=== PATIENT | male | born 1945 | race Caucasian/White ===

== ENCOUNTER 2018-12-01 10:38 | Emergency (ER) | payer MEDICARE, OTHER ==
[~2018-12-01 10:38] MED LIST: ADAL40PE4 SQ; ORP100 PO; PER PO; PRED-1 PO
[2018-12-01] MEDS ORDERED: LEVO-3 PO (10:53)
[2018-12-01 11:00] VITALS: BP 101/74
[2018-12-01] MEDS ORDERED: CLOB15CR22 TP (11:13)
[2018-12-01] MEDS ORDERED: SELE180S13 TOP (11:13)
--- NOTE | 2018-12-01 11:15 | ER Report ---
History and Physical Time Seen By MD: 10:45 Hx. of Stated Complaint: Pt. has history of rheumatoid psoratic arthritis. Has medication, but is not sure if he can apply it to the inside of his nostrils. Has a flare right now, and no established tool maintenance worker in town. HPI/ROS CHIEF COMPLAINT: Skin problem HISTORY OF PRESENT ILLNESS: This is a 73-year-old male presents to the emergency room for skin problem. Patient states that he has a history of rheumatoid psoriatic arthritis. 2 please well controlled however recently he is experienced a few lesions around the crease of his nose and a little on the inside of his nasal mucosa. He does have medications that he typically uses for these however he was unsure if he could use these on the mucosa and he also states that since he's been using the medications there is virtually no change. I did look at the medications, both of them were , 2011 and 2014. Patient has no other concerns, no fevers, no rashes, no chest pain or shortness of breath. REVIEW OF SYSTEMS: Respiratory: No cough, no dyspnea. Cardiovascular: No chest pain, no palpitations. Gastrointestinal: No vomiting, no abdominal pain. Musculoskeletal: No back pain. Integumentary: As above. Allergies: Coded Allergies: hydromorphone (Unverified Allergy, Unknown, 12/01/18) hydroxychloroquine (Unverified Allergy, Unknown, 12/01/18) Home Meds Active Scripts Selenium Sulfide (Selenium Sulfide) 2.3 % Shampoo, 1 MARIELA TOP PRN, #1 BOT Prov:SAMANTHA BECKMAN-BC 12/01/18 Clobetasol Propionate/Emoll (CLOBETASOL EMOLLIENT 0.05% CRM) 15 Gm Cream..g., 1 MARIELA TP BID, #1 TUB Prov:SAMANTHA BECKMAN-BC 12/01/18 Reported Medications Levothyroxine Sodium (LEVOTHYROXINE SODIUM) 100 Mcg Tablet, 150 MCG PO QDAY, TAB 12/01/18 Adalimumab (HUMIRA) 40 Mg/0.8 Ml [email or web address], 40 MG SQ 11/04/14 Discontinued Scripts Prednisone 10 Mg Tab (PREDNISONE 10 MG TAB) 10 Mg Tablet, 10 MG PO DIRECTED, #35 TAB 2 BID x5, 1 BID x5, 1 QDay X5 Prov:ROXY WALTON [employer] 11/04/14 Orphenadrine Citrate (ORPHENADRINE CITRATE) 100 Mg Tabsr, 100 MG PO BID, #20 TAB Prov:ROXY WALTON [employer] 11/04/14 Oxycodone/Acetaminophen (OXYCODONE/ACETAMINOPHEN 5MG/325 MG) 5 Mg/325 Mg Tab, 1- 2 TAB PO Q6H, #30 TAB Prov:ROXY WALTON [employer] 11/04/14 Past Medical/Surgical History Patient has a past medical and surgical history of bilateral ocular implants, bilateral knee replacements, right shoulder repair, left shoulder repair, C3-4 fusion, rheumatoid arthritis, psoriasis. Reviewed Nurses Notes: Yes Hx Smoking: No Constitutional Vital Sign - Last 24 Hours 12/01/18 12/01/18 12/01/18 12/01/18 10:44 10:45 10:48 10:53 Temp 98.1 Pulse 96 99 92 Resp 16 B/P (MAP) 100/76 100/76 (84) Pulse Ox 92 93 91 O2 Delivery Room Air 12/01/18 11:00 B/P (MAP) 101/74 (83) Physical Exam General Appearance: The patient is alert, has no immediate need for airway protection and no current signs of toxicity. Eyes: Pupils equal and round no injection. Respiratory: Chest is non tender, lungs are clear to auscultation. Cardiac: regular rate and rhythm. Gastrointestinal: Abdomen is soft and non tender, no masses, bowel sounds normal. Musculoskeletal: Neck: Neck is supple and non tender. Extremities have full range of motion and are non tender. Skin: Psoriatic, scaly lesions to the external nasal folds, mild inflammation to the inferior turbinates, no other lesions, or bleeding identified. DIFFERENTIAL DIAGNOSIS: After history and physical exam differential diagnosis was considered for psoriatic arthritis and psoriasis. Medical Decision Making ED Course/Re-evaluation ED Course Patient was admitted to room. A history and physical obtained. Differential diagnoses were considered. After examination of patient's and evaluation of the patient's medications that he's been using for his psoriasis, did note that the medications were grossly outdated, I did speak with a pharmacist, they also stated that with the outdated medications the patient and see is a concern, I did write for new prescriptions, I also recommended following up with the tool maintenance worker, did recommend following up with the tool maintenance worker as soon as possible, patient expressed understanding, was agreeable with this plan of care and discharged home. Decision to Disposition Date: Dec 01, 2018 Decision to Disposition Time: 11:19 Depart Departure Latest Vital Signs Vital Signs Date Time Temp Pulse Resp B/P (MAP) Pulse Ox O2 Delivery O2 Flow Rate FiO2 12/01/18 11:00 101/74 (83) 12/01/18 10:53 92 91 12/01/18 10:44 98.1 16 Room Air Impression: Primary Impression: Psoriasis Condition: Improved Disposition: HOME OR SELF-CARE Referrals: REJI GRANT 2 Weeks New Scripts Selenium Sulfide (Selenium Sulfide) 2.3 % Shampoo 1 MARIELA TOP PRN, #1 BOT Prov: SAMANTHA BECKMAN- 12/01/18 Clobetasol Propionate/Emoll (CLOBETASOL EMOLLIENT 0.05% CRM) 15 Gm Cream..g. 1 MARIELA TP BID, #1 TUB Prov: SAMANTHA BECKMAN-RAJ 12/01/18 Patient Instructions: Psoriasis (ED) Additional Instructions: Please fill the new prescriptions, and discard the old prescriptions. Please contact Dr. Grant, the tool maintenance worker for a follow-up. Use the medications as prescribed. Get plenty of rest. Drink plenty of water. Return to the emergency department for any other concerns or worsening symptoms. SAMANTHA BECKMAN-BC Dec 01, 2018 11:15
== END 2018-12-01 11:44 | disposition home or self-care (01) ==
LOC: ER 10:47
DX: L40.9 Psoriasis, unspecified (principal)
CPT/HCPCS: 99282